=== PATIENT | female | born 1965 | race Caucasian/White ===

== ENCOUNTER 2025-05-18 08:46 | Outpatient (CLI) | payer OTHER | END 2025-05-18 09:07 | disposition home or self-care (01) | LOC: SONOGRAMA 08:46 | DX: K76.0 Fatty (change of) liver, not elsewhere classified (principal); Z13.6 Encounter for screening for cardiovascular disorders; R10.20 Pelvic and perineal pain unspecified side; N93.9 Abnormal uterine and vaginal bleeding, unspecified ==